=== PATIENT | male | born 1970 | race Caucasian/White ===

== ENCOUNTER 2018-07-15 17:11 | Emergency (ER) | payer OTHER ==
[~2018-07-15] VITALS: Ht 180.3 cm; Wt 108.9 kg
[~2018-07-15 17:11] MED LIST: CELEXA 10 MG TA10 M1 PO; CLONIDINE0.1; NAPROSYN500 MG PO; ZYPREXA5 MG PO
[2018-07-15 21:29] VITALS: BP 111/64
== END 2018-07-15 21:40 | disposition home or self-care (01) ==
LOC: EDSEX 17:11 → ER 17:11
DX: F10.129 Alcohol abuse with intoxication, unspecified (principal); Y90.9 Presence of alcohol in blood, level not specified; I10 Essential (primary) hypertension; F17.210 Nicotine dependence, cigarettes, uncomplicated; Z88.5 Allergy status to narcotic agent; Z88.8 Allergy status to other drugs, medicaments and biological substances